=== PATIENT | female | born 1995 | race Caucasian/White ===

== ENCOUNTER 2017-01-13 13:10 | Emergency (ER) | payer BC ==
[~2017-01-13] VITALS: Ht 160 cm; Wt 68.2 kg
[2017-01-13 13:16] VITALS: TEMP 98.1
[2017-01-13] MEDS ORDERED: ANTIVERT 12.512.5 MG PO (13:21)
[2017-01-13 14:33] LABS: BASO # 0.1 (0.0-0.2); BASO % 0.6 % (0.0-2.0); EOS # 0.1 (0.0-0.7); EOS % 1.3 % (0-4.0); GRAN # 7.2 (1.4-6.5); GRAN % 66.5 % (42.2-75.2); HEMATOCRIT 39.7 % (35.0-45.0); HEMOGLOBIN 13.5 g/dl (12.0-15.0); LYMPH # 2.8 (1.2-3.4); MEAN CELL VOLUME 79 fl (80.0-95.0); MEAN CORPUSCULAR HEMOGLOBIN 27 pg (26.0-32.0); MEAN CORPUSCULAR HGB CONC 34 g/dl (33.0-37.0); MEAN PLATELET VOLUME 9.2 fl (7.4-10.4); MONO # 0.6 (0.1-0.6); MONO % 5.4 % (1.7-9.3); PLATELET COUNT 397 K/mm3 (130-400); RED BLOOD COUNT 5.02 M/mm3 (4.10-5.30); REDCELL DISTRIBUTION WIDTH-CV 12.4 % (11.5-14.5); WHITE BLOOD COUNT 10.9 K/mm3 (4.8-10.8)
[2017-01-13 14:41] LABS: ADJUSTED CALCIUM 9.5 mg/dL (8.4-10.2); ALBUMIN 4.5 gm/dL (3.5-5.0); BILIRUBIN,TOTAL 0.5 mg/dL (0.0-1.0); CALCIUM 9.9 mg/dL (8.4-10.2); CREATININE, serum 0.69 mg/dL (0.52-1.25); POTASSIUM 3.4 mmol/L (3.4-5.0); TOTAL PROTEIN 8.2 gm/dL (6.4-8.2)
[2017-01-13 16:02] LABS: PH 6 (5-8); URINE APPEARANCE Clear; URINE BACTERIA Rare /hpf; URINE BILIRUBIN Negative (NEGATIVE); URINE BLOOD Negative (NEGATIVE); URINE COLOR Yellow; URINE GLUCOSE Negative (NEGATIVE); URINE KETONE Negative (NEGATIVE); URINE RBC 0-2 /hpf; URINE UROBILINOGEN Negative (NEGATIVE); URINE WBC 0-2 /hpf
[2017-01-13] MEDS ORDERED: MACROBID 1100 MG/CAP PO (16:31)
[2017-01-13 17:28] VITALS: BP 120/83; PULSE 89
== END 2017-01-13 17:16 | disposition home or self-care (01) ==
LOC: COL.ER 13:10
PROVIDERS: Nurse Practitioner
DX: R42 Dizziness and giddiness (principal); F41.9 Anxiety disorder, unspecified; N39.0 Urinary tract infection, site not specified
CPT/HCPCS: J2060; J7030

== ENCOUNTER → 2017-03-22 | Outpatient (CLI) | payer OTHER ==
[~2017-03-22] MED LIST: ANTIVERT 12.512.5 MG PO; MACROBID 1100 MG/CAP PO
== END ==
LOC: COL.RAD 07:21
DX: R51 Headache (principal); R42 Dizziness and giddiness
CPT/HCPCS: A9585

== ENCOUNTER 2017-12-11 09:00 | Outpatient (RCR) | payer BC ==
[2018-02-05] MEDS ORDERED: ZOLOFT 50MG50 MG PO (08:24)
[2018-02-05] MEDS ORDERED: MULTI VITAMINS1 TAB PO (08:24)
== END 2018-03-04 | disposition home or self-care (01) ==
LOC: MKS.ESL.PT
DX: R42 Dizziness and giddiness (principal); Z79.899 Other long term (current) drug therapy

== ENCOUNTER 2018-02-05 06:46 | Outpatient (CLI) | payer BC ==
[~2018-02-05] VITALS: Ht 160.1 cm; Wt 81.7 kg
[2018-02-05] MEDS ORDERED: MULTI VITAMINS1 TAB PO (08:24)
[2018-02-05] MEDS ORDERED: ZOLOFT 50MG50 MG PO (08:24)
[2018-02-05 08:25] VITALS: BP 104/60; PULSE 67; TEMP 97.7
[2018-02-05 10:05] VITALS: BP 116/70; PULSE 79; TEMP 97.5
[2018-02-05 10:55] VITALS: BP 116/70; PULSE 68
== END 2018-02-05 11:16 | disposition home or self-care (01) ==
LOC: COL.CAR 06:46
DX: R55 Syncope and collapse (principal); F32.9 Major depressive disorder, single episode, unspecified; F41.9 Anxiety disorder, unspecified; I95.1 Orthostatic hypotension; Z82.49 Family history of ischemic heart disease and other diseases of the circulatory system